=== PATIENT | female | born 1975 | race Asian ===

== ENCOUNTER 2019-02-04 19:07 | Emergency (ER) | payer OTHER, MEDICAID ==
[~2019-02-04] VITALS: Ht 160 cm; Wt 59.9 kg
[2019-02-04 21:21] VITALS: BP 126/78
== END 2019-02-04 21:21 | disposition home or self-care (01) ==
LOC: ED 19:07
DX: S16.1XXA Strain of muscle, fascia and tendon at neck level, initial encounter (principal); Z88.8 Allergy status to other drugs, medicaments and biological substances; V49.49XA Driver injured in collision with other motor vehicles in traffic accident, initial encounter; Y93.I9 Activity, other involving external motion; Y92.413 State road as the place of occurrence of the external cause; Y99.8 Other external cause status